=== PATIENT | male | born 1945 | race Two or more races ===

== ENCOUNTER 2021-06-07 17:55 | Inpatient (IN) | payer MEDICARE, BC ==
[~2021-06-07] VITALS: Ht 170.2 cm; Wt 83.5 kg
[2021-06-07] MEDS ORDERED: GABA300C PO (18:00)
[2021-06-07] MEDS ORDERED: TAMS-12 PO (18:00)
[2021-06-07] MEDS ORDERED: PRAV40TA3 PO (18:00)
[2021-06-07] MEDS ORDERED: ONDANSETRON HCL/PF 4 MG/2 ML VIAL IVP ONE (18:30)
[2021-06-07] MEDS ORDERED: IV NS 0.9% 1,000 ML BAG IV ONE (18:30)
[2021-06-07] MEDS ORDERED: ONDANSETRON HCL/PF 4 MG/2 ML VIAL ONE (18:49)
[2021-06-07 18:51] LABS: BASOPHILS % (AUTO) 0.5 % (0.0-2.0); HEMATOCRIT 39 % (39-51); HEMOGLOBIN 13.2 g/dL (13.5-17.5); LYMPHOCYTES # (AUTO) 1.3 K/uL (0.8-4.8); LYMPHOCYTES % (AUTO) 24.6 % (20.0-44.0); MEAN CORPUSCULAR HGB CONC 34 g/dl (31.0-36.0); MEAN CORPUSCULAR VOLUME 88 fL (80-96); MONOCYTES # (AUTO) 0.3 K/uL (0.1-1.30); MONOCYTES % (AUTO) 6.3 % (2.0-12.0); NEUTROPHILS # (AUTO) 3.6 K/uL (1.8-8.9); NEUTROPHILS % (AUTO) 66.6 % (43.0-81.0); PLATELET COUNT (AUTO) 112 K/uL (150-450); RED BLOOD CELL COUNT(AUTO) 4.45 MIL/uL (4.5-6.0); WHITE BLOOD COUNT (AUTO) 5.4 K/uL (4.3-11.0)
--- NOTE | 2021-06-07 18:57 | NUR ---
[id number] FRM HOME FOR AMS AND NOTED SEIZURE LIKE ACTIVITY. PT EYES CLOSED, WILL ANSWER WITH A MOAN. PLACED ON ISOTOPE HYDROLOGIST, SR. PLACED ON O2 2L, O2 SAT 98%. PT SEEN & EVAL'D BY DR. JORGE. PLACED ON SEIZURE PRECAUTION. RR EVEN & UNLABORED. WILL CONT TO MONITOR.
[2021-06-07 19:01] LABS: SERUM AMMONIA 11 umol/L (11-32)
--- NOTE | 2021-06-07 19:08 | NUR ---
PT TO CT VIA [place]
[2021-06-07 19:10] LABS: ALANINE AMINOTRANSFERASE 23 U/L (12-78); ALBUMIN 3.1 g/dL (3.4-5.0); ALCOHOL, BLOOD < 3 mg/dL (0-0); ALKALINE PHOSPHATASE 53 U/L (46-116); ASPARTATE AMINOTRANSFERASE 15 U/L (15-37); BILIRUBIN,DIRECT 0.1 mg/dL (0.0-0.2); BILIRUBIN,TOTAL 0.3 mg/dL (0.2-1.0); CARBON DIOXIDE 27 mmol/L (21-32); CHLORIDE 106 mmol/L (98-107); CREATININE 1.1 mg/dL (0.6-1.3); GLUCOSE 126 mg/dL (74-106); POTASSIUM 4.2 mmol/L (3.5-5.1); SODIUM SERUM 141 mmol/L (136-145); TOTAL PROTEIN, SERUM 6.3 g/dL (6.4-8.2); UREA NITROGEN, BLOOD 13 mg/dL (7-18)
[2021-06-07 19:14] LABS: ACETAMINOPHEN < 2 ug/ml (10-30); THYROID STIMULATING HORMONE 0.946 uIU/mL (0.358-3.74)
--- NOTE | 2021-06-07 19:30 | NUR ---
PT BACK FROM [place]. FAMILY AT BS. RR EVEN & UNLABORED. WILL CONT TO MONITOR.
[2021-06-07 19:56] LABS: BILIRUBIN,URINE Negative (NEGATIVE); COLOR,URINE YELLOW (YELLOW); LEUKOCYTE ESTERASE ,URINE Negative (NEGATIVE); NITRITE, URINE Negative (NEGATIVE); PROTEIN,URINE Negative (NEGATIVE); UGLUCOSE Negative (NEGATIVE); UROBILINOGEN,URINE 0.2 EU/dL (0.2)
[2021-06-07] MEDS ORDERED: LEVETIRACETAM (500MG) 1,500 MG in IV NS 0.9% 100 ML IV SCH (21:00)
--- NOTE | 2021-06-07 21:03 | NUR ---
PT EYES CLOSED, EASILY AWAKEN BY VERBAL STIMULI. RR EVEN & UNLABORED. ON TELE, SR. WILL CONT TO MONITOR. FAMILY AT BS.
[2021-06-07] MEDS ORDERED: LEVETIRACETAM (500MG) 500 MG/5 ML VIAL IV ONE ×2 (21:12→21:31)
--- NOTE | 2021-06-07 21:20 | NUR ---
ONLY FOUND 1 VIAL OF KEPPRA IN OMNICEL, NEEDED 2 MORE VIALS. NURSING FARM GENERAL MANAGER NOTIFIED.
--- NOTE | 2021-06-08 00:52 | NUR ---
REPORT GIVEN TO JAIME MCNULTY
[2021-06-08 01:00] VITALS: BP 142/62
--- NOTE | 2021-06-08 01:00 | NUR ---
PEDIATRIC LPN OPENING NOTES RECEIVED PT FROM [facility] WITH DX OF NEW ONSET SEIZURE. PT A/O X4, VERBAL. SR ON TELE MONITOR, HR 70. NOTED IV ACCESS ON R-AC #18 INTACT/PATENT. SKIN ASSESSMENT DONE. ADMISSION INSTRUCTIONS RENDERED. SAFETY MEASURES IN PLACE, BED IN LOWEST LOCKED POSITION, S/R UP X2, CALL LIGHT AND TABLE WITHIN REACH. WILL CONTINUE TO MONITOR.
--- NOTE | 2021-06-08 01:08 | NUR ---
PATIENT TRANSFERRED UNDER ACLS.
[2021-06-08] MEDS ORDERED: ONDANSETRON HCL/PF 4 MG/2 ML VIAL IVP PRN (02:00)
[2021-06-08] MEDS ORDERED: ACETAMINOPHEN 325 MG TABLET PO PRN (02:00)
[2021-06-08] MEDS ORDERED: IV NS 0.9% 1,000 ML IV PRN (02:00)
[2021-06-08] MEDS ORDERED: Z GUARD REMEDY 2 OZ OINT TP PRN (02:00)
[2021-06-08 04:00] VITALS: BP 113/49
--- NOTE | 2021-06-08 06:44 | NUR ---
SYSTEMS TECHNICIAN CLOSING NOTES PT RESTING IN BED, EASILY AWAKENS TO STIMULI. A/O X4. ABLE TO VERBALIZE NEEDS. HE DENIES ANY PAIN OR DISCOMFORT AT THIS TIME. RESPIRATIONS EVEN, UNLABORED, DENIES ANY SOB. IV ACCESS ON R-AC #18G INTACT, PATENT, INFUSING IVF 0.9% NS @75ML/HR. PT IN NO ACUTE DISTRESS. NO SEIZURE ACTIVITY DURING THE SHIFT. SAFETY MEASURES MAINTAINED, BED IN LOWEST LOCKED POSITION, S/R UP X2, CALL LIGHT AND TABLE WITHIN EASY REACH.
[2021-06-08] MEDS ORDERED: PANTOPRAZOLE 40 MG TABLET.DR PO SCH (07:00)
--- NOTE | 2021-06-08 07:35 | NUR ---
CONCRETE TESTER OPENING NOTES RECEIVED PATIENT ASLEEP IN BED, EASY TO AROUSE. ALERT AND ORIENTED X 4. NO SIGNS OR SYMPTOMS OF DISTRESS NOTED. NO SOB. BREATHING IS EVEN AND UNLABORED. NO COMPLAINTS OF PAIN AT THIS TIME. PATIENT TOLERATING WELL ON 2L O2 VIA NC. IV ACCESS RAC#18 PATENT, INTACT WITH NS 0.9% RUNNING @ 75MLS/HR. SAFETY MEASURES IN PLACE WITH BED AT LOW POSITION, SIDE RAILS UP X2. CALL LIGHT IS WITHIN REACH. WILL CONTINUE TO MONITOR PATIENT THROUGHOUT SHIFT.
[2021-06-08 08:00] VITALS: BP 130/56
[2021-06-08] MEDS ORDERED: LEVETIRACETAM (250 MG) 250 MG TABLET PO SCH (10:00)
--- NOTE | 2021-06-08 11:14 | NUR ---
TONGUE STITCHER NOTES PATIENT WAS SEEN BY ROD PARRISH PONY WORKER, WITH NEW ORDER TO COLLECT PROCALCITONIN WITH NEXT BLOOD DRAW. ORDERS READ BACK AND CARRIED OUT.
--- NOTE | 2021-06-08 14:30 | NUR ---
GAME BREEDING FARM MANAGERSENIOR PRINCIPAL ARCHITECT NOTES RECEIVED ORDER FOR DISCHARGE. PATIENT WAS DISCHARGED WITH STABLE VITAL SIGNS. ALERT AND ORIENTED X 4. AT BEDSIDE. DISCHARGE SUMMARY REVIEWED AND SIGNED BY PATIENT. PATIENT WAS INSTRUCTED TO F/U WITH NEUROLOGY IN 1 WEEK, GET ADEQUATE SLEEP AND START KEPPRA. PHOTOS TAKEN, ALL BELONGINGS RETURNED AND BELONGINGS LIST WAS SIGNED. INSTRUCTIONS REVIEWED WITH, VERBALIZED UNDERSTANDING. ALL QUESTIONS ANSWERED. ID AND IV ACCESS REMOVED UPON LEAVING UNIT. PATIENT LEFT UNIT VIA WHEELCHAIR, OBSERVED PATIENT GET INTO PRIVATE CAR.
[2021-06-08] MEDS ORDERED: LEVE500T9 PO (15:56)
== END 2021-06-08 16:55 | disposition home or self-care (01) | DRG 917 ==
LOC: ER 17:58 → TELE 06-08 00:42
PROVIDERS: ADMIT Nurse Practitioner Acute Care; ATTEND Registered Nurse
DX: T40.7X1A Poisoning by cannabis (derivatives), accidental (unintentional), initial encounter (principal); G92 Toxic encephalopathy; R56.9 Unspecified convulsions; Z20.822 Contact with and (suspected) exposure to COVID-19; E78.5 Hyperlipidemia, unspecified; Z79.899 Other long term (current) drug therapy; F12.10 Cannabis abuse, uncomplicated; N40.0 Benign prostatic hyperplasia without lower urinary tract symptoms; Z72.820 Sleep deprivation; Y92.009 Unspecified place in unspecified non-institutional (private) residence as the place of occurrence of the external cause
CPT/HCPCS: 36415; 70450-TC; 71045-TC; 80048-TC; 80076-TC; 82140-TC; 82962-TC; 84443-TC; 84484-TC; 85025-TC; 85730-TC; 87081-TC; 87086-TC; 93307-TC; 95819-TC; 97112-TC; 97116-TC; C9803; G0378; G0480; J1953; J2405; J7030